=== PATIENT | female | born 1985 ===

== ENCOUNTER 2020-12-25 21:08 | Emergency (ER) | payer OTHER, SELFPAY ==
[2020-12-25 22:04] VITALS: BP 127/84
--- NOTE | 2020-12-26 01:15 | XRay Report ---
XR chest routine 2V INDICATION / CLINICAL INFORMATION: cough and sob. COMPARISON: None available. FINDINGS: SUPPORT DEVICES: None. HEART /PULMONARY VASCULATURE: No significant abnormality. LUNGS / PLEURA: No significant pulmonary or pleural abnormality. No pneumothorax. ADDITIONAL FINDINGS: No significant additional findings. IMPRESSION: 1. No acute findings. Signer Name: Donnie Ochoa MD Signed: 12/26/2020 1:11 AM Workstation Name: [id number]
--- NOTE | 2020-12-26 02:30 | Emergency Department Report ---
- General Chief Complaint: Upper Respiratory Infection Stated Complaint: SOB/CHEST PAIN/+COVID Time Seen by Provider: 12/26/20 00:29 Source: patient Mode of arrival: Ambulatory Limitations: No Limitations - History of Present Illness Initial Comments: 35-year-old obese abdomen female with medical complaining of having fever sensation patient aches chills coryza and vague chest discomfort off and on since being diagnosed on this past Thursday with COVID-19. States that her symptoms started on almost 1 week ago. Reports no hemoptysis hematemesis hematochezia, no diarrhea, no nausea or vomiting no rashes. MD Complaint: fever, cough, rhinorrhea, nasal congestion -: Gradual Severity: mild, moderate Consistency: constant Associated Symptoms: myalgias, rhinorrhea, nasal congestion, chest pain - Related Data Previous Rx's Medication Instructions Recorded Last Taken Type Albuterol Mdi (or & Nicu Only) 1 puff IH Q4-6H PRN #1 inha 12/26/20 Unknown Rx [ProAir HFA Inhaler] predniSONE [Deltasone] 20 mg PO QDAY #5 tab 12/26/20 Unknown Rx Allergies Allergy/AdvReac Type Severity Reaction Status Date / Time No Known Allergies Allergy Unverified 12/25/20 21:45 ED Review of Systems ROS: Stated complaint: SOB/CHEST PAIN/+COVID Other details as noted in HPI Comment: All other systems reviewed and negative ED Past Medical Hx - Past Medical History Previous Medical History?: No - Surgical History Past Surgical History?: No - Medications Home Medications: Home Medications Medication Instructions Recorded Confirmed Last Taken Type Albuterol Mdi (or & Nicu Only) 1 puff IH Q4-6H PRN #1 inha 12/26/20 Unknown Rx [ProAir HFA Inhaler] predniSONE [Deltasone] 20 mg PO QDAY #5 tab 12/26/20 Unknown Rx ED Physical Exam - General Limitations: No Limitations General appearance: alert, in no apparent distress - Head Head exam: Present: atraumatic, normocephalic - Eye Eye exam: Present: normal appearance - ENT ENT exam: Present: mucous membranes moist, other (Nasal congestion bilaterally some some throat irritation but airways patent tongue and uvula midline) - Neck Neck exam: Present: normal inspection - Respiratory Respiratory exam: Present: normal lung sounds bilaterally. Absent: respiratory distress - Cardiovascular Cardiovascular Exam: Present: regular rate, normal rhythm. Absent: systolic murmur, diastolic murmur, rubs, gallop - GI/Abdominal GI/Abdominal exam: Present: soft, normal bowel sounds - Extremities Exam Extremities exam: Present: normal inspection - Back Exam Back exam: Present: normal inspection - Neurological Exam Neurological exam: Present: alert, oriented X3, CN II-XII intact, normal gait - Psychiatric Psychiatric exam: Present: normal affect, normal mood - Skin Skin exam: Present: warm, dry, intact, normal color. Absent: rash ED Course Vital Signs 12/25/20 21:45 Temperature 100.1 F H Pulse Rate 84 Respiratory 18 Rate Blood Pressure 127/84 O2 Sat by Pulse 98 Oximetry ED Medical Decision Making - Radiology Data Radiology results: report reviewed XRay Report Signed Patient: KIMMY KEYES MR#: [id number] : 1985 Acct:[id number] Age/Sex: 35 / F ADM Date: 12/25/20 Loc: ED Attending Dr: Ordering Physician: ASUNCION VENEGAS Date of Service: 12/26/20 Procedure(s): XR chest routine 2V Accession Number(s): [id number] cc: ASUNCION VENEGAS Fluoro Time In Minutes: XR chest routine 2V INDICATION / CLINICAL INFORMATION: cough and sob. COMPARISON: None available. FINDINGS: SUPPORT DEVICES: None. HEART /PULMONARY VASCULATURE: No significant abnormality. LUNGS / PLEURA: No significant pulmonary or pleural abnormality. No pneumothorax. ADDITIONAL FINDINGS: No significant additional findings. IMPRESSION: 1. No acute findings. Signer Name: Marvel Tierney MD Signed: 12/26/2020 1:11 AM Workstation Name: [id number] Transcribed By: KIKE Dictated By: MARVEL TIERNEY MD Electronically Authenticated By: MARVEL TIERNEY MD Signed Date/Time: 12/26/20110 DD/ 9 TD/TT: Print Cancel - Medical Decision Making This patient presents with acute cough, most consistent with cough. Differential diagnosis includes cough with reactive airway disease, hyperreactive airway disease, bronchitis, COVID-19. Presentation not consistent with acute bacterial pneumonia, influenza, asthma, transient airway hyperresponsiveness. Presentation not consistent with chronic causes of cough (including GERD, asthma, postnasal discharge, medication side effect, CHF, lung cancer or mass). PlanCXR, supportive care, reassess This patient presents to the emergency department with fever and lower respiratory symptoms concerning for viral syndrome including flu and COVID-19. Patient has suspicion and is for COVID-19 infection. Differential diagnosis includes other viral causes of lower respiratory symptoms, pneumonia, asthma, bronchitis. Patient is well-appearing with acceptable vitals, lacks comorbidities admission and a reassuring physical examination and is safe to be discharged home nasal swab for COVID testing is recommended. Provide strict return precautions and instructions on self isolation/quarantine and anticipatory guidance. Critical care attestation.: If time is entered above; I have spent that time in minutes in the direct care of this critically ill patient, excluding procedure time. ED Disposition Clinical Impression: Acute COVID-19, Cough Disposition: DC- TO HOME OR SELFCARE Is pt being admited?: No Does the pt Need Aspirin: No Condition: Stable Instructions: Cool Mist Vaporizer, COVID-19 Frequently Asked Questions, Cough, Adult, COVID-19: How to Protect Yourself and Others - CDC, Prevent the Spread of COVID-19 if You Are Sick - CDC Prescriptions: predniSONE [Deltasone] 20 mg PO QDAY #5 tab Albuterol Mdi (or & Nicu Only) [ProAir HFA Inhaler] 1 puff IH Q4-6H PRN #1 inha PRN Reason: Cough
--- NOTE | 2020-12-26 09:51 | Electrocardiograph Report ---
[facility] Test Date: 2020-12-25 Test Time: 21:52:22 Pat Name: KIMMY KEYES Department: Room: Gender: F Electrocardiographic Technician: HAYLEY : 1985 Requested By: MARGY WAKEFIELD Order Number: [id number] Reading MD: Tuan Miguel Measurements Intervals Steele Rate: 78 P: 57 AL: 157 QRS: 42 QRSD: 75 T: 46 QT: 355 QTc: 405 Interpretive Statements Sinus rhythm No previous ECG available for comparison Electronically Signed On 12-26-2020 9:50:58 EDT by Tuan Miguel
== END 2020-12-26 03:00 | disposition home or self-care (01) ==
LOC: ED 21:08
DX: U07.1 COVID-19 (principal); Z79.899 Other long term (current) drug therapy
CPT/HCPCS: 71046; 93005; 99283